=== PATIENT | female | born 1950 | race Caucasian/White ===

== ENCOUNTER 2018-03-07 08:00 | Inpatient (IN) | payer BC, MEDICARE ==
[2018-03-06 11:41] VITALS: BMI 22.5
[~2018-03-07] VITALS: Ht 160 cm; Wt 54.1 kg
[~2018-03-07 08:00] MED LIST: DULO60CA6 PO; FOLI-49 PO; HYDR200T5 PO; LEVO75TA5 PO; LOSA50TA14 PO; MONT10TA24 PO
[2018-04-02] VITALS (25 sets, daily range): BP systolic 84–158; BP diastolic 39–70; PULSE 70–78; RESP 10–26; Ht 160 cm; Wt 54.1 kg
[2018-04-02] MEDS ORDERED: SEVOFLURANE 15 MIN ONE (07:00)
[2018-04-02] MEDS ORDERED: OLME20TA20 PO (09:19)
[2018-04-02] MEDS ORDERED: HYDR200T5 PO (09:19)
[2018-04-02] MEDS ORDERED: LINA290C PO (09:20)
--- NOTE | 2018-04-02 09:50 | PREAC ---
Date/Time of Note Date/Time of Note DATE: 04/02/18 TIME: 09:46 Anesthesia Eval and Record Evaluation Time Pre-Procedure Interview DATE: 04/02/18 TIME: 09:46 Age 68 Sex female NPO: 8 hrs Preoperative diagnosis C3-6 degenerative disc disease Planned procedure C3-6 anterior cervical discectomy and instrumented fusion Past Medical History Past Medical History: Includes Cardio: HTN Endo: Hypothyroid Musculoskeletal: Osteoarthritis Renal: CKD Psych: Depression Infection(s): Hep C Surgery & Anesthesia Issues No known issue Meds Anticoagulation: No Beta Sydnie within 24 hr: No Reason Beta Sydnie not given: Pt. not on B-Sydnie Reported Medications Linaclotide (LINZESS) 290 Mcg Capsule, 290 MCG PO DAILY, #30 CAP 04/02/18 Olmesartan Medoxomil (Benicar) 20 Mg Tablet, 20 MG PO DAILY, #30 TAB 04/02/18 Hydroxychloroquine Sulfate* (Plaquenil*) 200 Mg Tab, 300 MG PO DAILY, TAB 04/02/18 Montelukast Sodium* (Montelukast Sodium*) 10 Mg Tablet, 10 MG PO QHS, #30 TAB 03/06/18 Folic Acid* (Folic Acid*) 1 Mg Tablet, 2 MG PO DAILY, TAB 03/06/18 Levothyroxine Sodium* (Levothyroxine Sodium*) 75 Mcg Tablet, 75 MCG PO BEFORE BREAKFAST, #30 TAB 03/06/18 Duloxetine Hcl* (Cymbalta*) 60 Mg Capsule.dr, 60 MG PO DAILY, CAP 03/06/18 Discontinued Reported Medications Hydroxychloroquine Sulfate* (Plaquenil*) 200 Mg Tab, 200 MG PO DAILY, TAB 03/06/18 Losartan Potassium* (Losartan Potassium*) 50 Mg Tablet, 75 MG PO DAILY, TAB 03/06/18 Meds reviewed: Yes Allergies Coded Allergies: Penicillins (Verified Adverse Reaction, Severe, weird feelings, psychological rxn, 04/02/18) Allergies Reviewed: Yes Labs/Studies Labs Reviewed: Reviewed by anesthesiologist test: N/A Pre-procedure Exam Last vitals Vital Signs Date Temp Pulse Resp B/P (MAP) Pulse Ox O2 O2 Flow FiO2 Time Delivery Rate 04/02/18 97.8 75 18 101/53 98 Room Air 09:00 (69) Airway: Adequate mouth opening Mallampati: Mallampati I Teeth: Normal Lung: Normal Heart: Normal ASA Physical Status ASA physical status: 2 Emergency: None Planned Anesthetic General/MAC: ETT Planned Pain Management Parenteral pain med Pre-operative Attestations Prior to commencing anesthesia and surgery, the patient was re-evaluated, there was verification of: *The patient's identity *The results of appropriate recent lab work and preoperative vital signs *The above evaluation not changing prior to induction *Anesthetic plan, risk benefits, alternative and complications discussed with patient/family; questions answered; patient/family understands, accepts and wishes to proceed. OVIDIO ALCANTARA MD Apr 02, 2018 09:50
[2018-04-02] MEDS ORDERED: VANCOMYCIN 1 GM (PMX) 250 ML IVPB ONE (10:00)
[2018-04-02] MEDS ORDERED: PROPOFOL 20 ML ONE (10:14)
[2018-04-02] MEDS ORDERED: GLYCOPYRROLATE 0.4 MG INJ ONE ×2 (10:14→11:06)
[2018-04-02] MEDS ORDERED: MEPERIDINE 100 MG INJ ONE (10:14)
[2018-04-02] MEDS ORDERED: LIDOCAINE 2% (SDV) 5 ML INJ ONE (10:14)
[2018-04-02] MEDS ORDERED: ROCURONIUM 50 MG INJ ONE (10:14)
[2018-04-02] MEDS ORDERED: SUCCINYLCHOLINE CHLORIDE 100 MG/5 ML SYG IV ONE (10:14)
[2018-04-02] MEDS ORDERED: BUPIVACAINE 0.25% (MPF) 30 ML INJ ONE (10:15)
[2018-04-02] MEDS ORDERED: GELATIN SIZE 100 SPONGE ONE (10:15)
[2018-04-02] MEDS ORDERED: BUPIVACAINE 0.5%/EPI (SDV) 30 ML INJ ONE (10:15)
[2018-04-02] MEDS ORDERED: THROMBIN 5000 UNIT VIAL ONE (10:15)
[2018-04-02] MEDS ORDERED: POLYMYXIN/BACITRACIN 1L IRRIG ONE (10:16)
[2018-04-02] MEDS ORDERED: HEPARIN 1000 UNITS/ML 10 ML INJ ONE (10:16)
[2018-04-02] MEDS ORDERED: CA CHLORIDE (GM) 10% 10 ML INJ ONE (10:16)
--- NOTE | 2018-04-02 10:25 | HPN ---
Date/Time of Note Date/Time of Note DATE: 04/02/18 TIME: 10:25 Interval H&P Admission Note Pt. seen H&P reviewed: No system changes DOROTHY MCGUIRE MD Apr 02, 2018 10:25
[2018-04-02] MEDS: DOCUSATE SODIUM 100 MG CAP PO SCH ×2 (10:30→20:44)
[2018-04-02] MEDS ORDERED: ACETAMINOPHEN 325 MG TAB PO PRN (10:30)
[2018-04-02] MEDS ORDERED: HYDROCODONE/APAP (5/325) TAB PO PRN (10:30)
[2018-04-02] MEDS ORDERED: DIPHENHYDRAMINE 50 MG INJ IV PRN ×2 (10:30→13:30)
[2018-04-02] MEDS ORDERED: ONDANSETRON 4 MG INJ IV PRN ×2 (10:30→13:30)
[2018-04-02] MEDS ORDERED: NALOXONE (0.4 MG/ML) INJ IV PRN (10:30)
[2018-04-02] MEDS ORDERED: HYDROmorphONE 0.5 MG/0.5 ML SYG IV PRN (10:30)
[2018-04-02] MEDS ORDERED: PROCHLORPERAZINE 10 MG TAB PO PRN (10:30)
[2018-04-02] MEDS ORDERED: DIPHENHYDRAMINE 25 MG CAP PO PRN (10:30)
[2018-04-02] MEDS ORDERED: CYCLOBENZAPRINE 10 MG TAB PO PRN (10:30)
[2018-04-02] MEDS ORDERED: EPHEDrine 25 MG/5 ML SYG ONE (11:06)
[2018-04-02] MEDS ORDERED: NEOSTIGMINE 10 MG INJ ONE (11:06)
--- NOTE | 2018-04-02 13:21 | SIPON ---
Date/Time of Note Date/Time of Note DATE: 04/02/18 TIME: 13:13 conf #[id number] Operative Report Preoperative Diagnosis C3-6 stenosis and DDD Postoperative Diagnosis same Operation/Procedure Performed C3-6 ACDF Surgeon see signature line curatorial assistant Chelsie Bowen NP Anesthesia: general Estimated blood loss: minimal Transfusion Required none Specimen Disc material Grafts/Implants Stalif C interbody cage and screws Complications none DOROTHY MCGUIRE MD Apr 02, 2018 13:21
[2018-04-02] MEDS ORDERED: HYDROmorphONE 1 MG/5 ML IV SYRINGE IV ONE (13:28)
[2018-04-02] MEDS ORDERED: OXYCODONE/ACETAMINOPHEN (5/325) TAB PO PRN ×2 (13:30)
[2018-04-02] MEDS ORDERED: METOCLOPRAMIDE 10 MG INJ IV PRN (13:30)
[2018-04-02] MEDS ORDERED: FENTAnyl 50 MCG/ML VIAL IV PRN ×3 (13:30)
[2018-04-02] MEDS ORDERED: HYDROmorphONE 1 MG/5 ML IV SYRINGE IV PRN ×3 (13:30)
[2018-04-02] MEDS ORDERED: MEPERIDINE 25 MG INJ IV PRN (13:30)
[2018-04-02] MEDS ORDERED: hydrALAzine 20 MG INJ IV PRN (13:30)
[2018-04-02] MEDS ORDERED: MIDAZOLAM 1 MG/ML 2 ML INJ IV PRN (13:30)
[2018-04-02] MEDS ORDERED: EPHEDrine SULFATE 50 MG/5 ML SYG IV PRN (13:30)
[2018-04-02] MEDS ORDERED: LABETALOL HCL 20MG INJ IV PRN (13:30)
[2018-04-02] MEDS ORDERED: LORAZEPAM 2 MG INJ ONE (13:50)
--- NOTE | 2018-04-02 13:58 | PAC ---
Date/Time of Note Date/Time of Note DATE: 04/02/18 TIME: 13:58 Post-Anesthesia Notes Post-Anesthesia Note Last documented vital signs Vital Signs Date Temp Pulse Resp B/P (MAP) Pulse Ox O2 O2 Flow FiO2 Time Delivery Rate 04/02/18 98.3 13:28 04/02/18 75 18 101/53 98 Room Air 09:00 (69) Activity: WNL Respiratory function: WNL Cardiovascular function: WNL Mental status: Baseline Pain reasonably controlled: Yes Hydration appropriate: Yes Nausea/Vomiting absent: Yes OVIDIO ALCANTARA MD Apr 02, 2018 13:58
[2018-04-02] MEDS ORDERED: LORAZEPAM 2 MG INJ IV ONE (14:00)
[2018-04-02] MEDS ORDERED: METOCLOPRAMIDE 10 MG INJ ONE (14:37)
[2018-04-02] MEDS ORDERED: ONDANSETRON 4 MG INJ ONE (14:37)
--- NOTE | 2018-04-02 16:55 | CONS ---
Assessment/Plan Assessment/Plan Hospital Course (Demo Recall) 68 yo F with PMH CKD stage 3, hypothyroidism, HTN, Raynaud's, osteoarthritis, depression, and chronic Hep C presented to [facility] for elective C3-C6 diskectomy, decompression and anterior fixation secondary to C3 through C6 cervical stenosis with cord compression, degenerative disk disease. Assessment/Plan (Daily) 1. C3- C6 cervical stenosis with cord compression s/p surgical intervention - management per Primary physician, Dr. Garcia - pain control 2. CKD stage 3 - avoid nephrotoxic agents - monitor Cr 3. Raynauds - continue home medications 4. Hypothyroidism - continue levothyroxine 5. Depression - Continue home medications Thank you for allowing me to participate in the care of this patient. Please call with any questions. Consultation Date/Type/Reason Admit Date/Time Apr 02, 2018 at 08:32 Type of Consult Internal Medicine Reason for Consultation medical management Date/Time of Note DATE: 04/02/18 TIME: 16:55 Hx of Present Illness 68 yo F with PMH CKD stage 3, hypothyroidism, HTN, Raynaud's, osteoarthritis, depression, and chronic Hep C presented to [facility] for elective C3-C6 diskectomy, decompression and anterior fixation secondary to C3 through C6 cervical stenosis with cord compression, degenerative disk disease. Medicine consultation was placed for medical management. Patient was evaluated in PACU following uneventful surgery. She was very restless given pain and was given Fentanyl and Dilaudid for relief. She was sedated and unable to obtain full history. Vitals appeared stable and patient was in no acute distress. C-collar in place. All 12 systems reviewed and pertinent positives as per HPI. All others negative. Unable to obtain full ROS given sedation. Constitutional: disoriented Past Medical History Medical History: hypertension, hypothyroid, renal disease, other (raynauds, depression, hep C) Home Meds Reported Medications Linaclotide (LINZESS) 290 Mcg Capsule, 290 MCG PO DAILY, #30 CAP 04/02/18 Olmesartan Medoxomil (Benicar) 20 Mg Tablet, 20 MG PO DAILY, #30 TAB 04/02/18 Hydroxychloroquine Sulfate* (Plaquenil*) 200 Mg Tab, 300 MG PO DAILY, TAB 04/02/18 Montelukast Sodium* (Montelukast Sodium*) 10 Mg Tablet, 10 MG PO QHS, #30 TAB 03/06/18 Folic Acid* (Folic Acid*) 1 Mg Tablet, 2 MG PO DAILY, TAB 03/06/18 Levothyroxine Sodium* (Levothyroxine Sodium*) 75 Mcg Tablet, 75 MCG PO BEFORE BREAKFAST, #30 TAB 03/06/18 Duloxetine Hcl* (Cymbalta*) 60 Mg Capsule.dr, 60 MG PO DAILY, CAP 03/06/18 Discontinued Reported Medications Hydroxychloroquine Sulfate* (Plaquenil*) 200 Mg Tab, 200 MG PO DAILY, TAB 03/06/18 Losartan Potassium* (Losartan Potassium*) 50 Mg Tablet, 75 MG PO DAILY, TAB 03/06/18 Medications Current Medications Acetaminophen/ Hydrocodone Bitart ([place] (5/325)) 1 tab Q4H PRN PO .PAIN 1-5; Start 04/02/18 at 10:30 Acetaminophen/ Hydrocodone Bitart ([place] (5/325)) 2 tab Q4H PRN PO .PAIN 6-10; Start 04/02/18 at 10:30 Hydromorphone HCl (Dilaudid) 0.2 mg Q1H PRN IV .BREAKTHROUGH PAIN; Start 04/02/18 at 10:30 Vancomycin HCl 250 ml @ 125 mls/hr Q12H IVPB ; Start 04/02/18 at 20:00; Stop 04/03/18 at 09:59 Ondansetron HCl (Zofran Inj) 4 mg Q6H PRN IV NAUSEA/VOMITING; Start 04/02/18 at 10:30 Prochlorperazine (Compazine) 10 mg Q6H PRN PO NAUSEA/VOMITING; Start 04/02/18 at 10:30 Docusate Sodium (Colace) 100 mg BID PO ; Start 04/02/18 at 10:30 Pantoprazole (Protonix Tab) 40 mg DAILY@06 PO ; Start 04/03/18 at 06:00 Acetaminophen (Tylenol Tab) 650 mg Q4H PRN PO CONNOR OR TEMP GREATER THAN 101.3F; Start 04/02/18 at 10:30 Cyclobenzaprine HCl (Flexeril) 5 mg TID PRN PO .MUSCLE SPASM; Start 04/02/18 at 10:30 Phenol (Cepastat Lozenge) 1 lozenge PRN PRN MT .SORE THROAT; Start 04/02/18 at 10:30 Diphenhydramine HCl (Benadryl) 25 mg Q6H PRN PO .ITCHING; Start 04/02/18 at 10:30 Diphenhydramine HCl (Benadryl) 25 mg Q6H PRN IV .ITCHING Last administered on 04/02/18at 14:15; Admin Dose 25 MG; Start 04/02/18 at 10:30 Naloxone HCl (Narcan) 0.2 mg Q2M PRN IV .RR 8 BREATHS/MIN OR LESS; Start 04/02/18 at 10:30 Allergies: Coded Allergies: Penicillins (Verified Adverse Reaction, Severe, weird feelings, psychological rxn, 04/02/18) Past Surgical History Past Surgical Hx: other (cervical disketomy C3-C6 with decompression and anterior fixation, tubal ligation, rectal prolaspe) Family History Significant Family History: no pertinent family hx Social History Alcohol Use: other Smoking Status: Current every day smoker Drug Use: other Exam/Review of Systems Exam Vitals Vital Signs Date Temp Pulse Resp B/P (MAP) Pulse Ox O2 O2 Flow FiO2 Time Delivery Rate 04/02/18 70 11 99/44 (62) 99 14:38 04/02/18 Nasal 3.0 14:33 Cannula 04/02/18 98.3 13:28 Exam General: Patient is a pleasant female, currently lying in bed, collar in place, lethargic HEENT: Atraumatic, normocephalic. The pupils are equal, round and reactive. Extraocular motor are intact Neck: Supple, Collar in place Chest: Nontender Lungs: Clear to auscultation bilaterally no crackles rales or wheezing Heart: Normal S1-S2, Regular rate and rhythm, no murmurs Abdomen: Soft , nontender, nondistended , bowel sounds are present. No guarding no rebound tenderness , No masses or organomegaly. No costovertebral temporal angle mass Extremities: Normal to inspection, no edema no cyanosis Imaging Imaging PROCEDURE: XR Chest CLINICAL INDICATION: pre op evaluation TECHNIQUE: Frontal view of the chest COMPARISON: None available FINDINGS: The cardiomediastinal silhouette is within normal limits. No focal pulmonary consolidations. There is no evidence of significant pleural effusion or pneumothorax. No suspicious osseous lesions. IMPRESSION: No radiographic evidence of acute cardiopulmonary disease. RPTAT: KK Physician Lissette Date Time Electronically viewed and signed by Physician Lissette on 04/02/2018 09:30 PROCEDURE: Intraoperative imaging of the cervical spine with fluoroscopy. CLINICAL INDICATION: Neck pain. Intraoperative. TECHNIQUE: 5 images of the cervical spine were obtained in the operating room with an image intensifier. No radiologist was in attendance. Fluoroscopy time is 18 seconds. COMPARISON: No prior study is available for comparison. FINDINGS: Surgical instruments are noted overlying the cervical spine. Images demonstrate anterior fusion with screws and intervertebral cages at C3, C4, C5, C6. IMPRESSION: 1. Intraoperative imaging of the cervical spine. RPTAT: QQ .Clifford Burk MD, MD Date Time Electronically viewed and signed by .Clifford Burk MD, MD on 04/02/2018 13:55 Medications Medication Current Medications Acetaminophen/ Hydrocodone Bitart ([place] (5/325)) 1 tab Q4H PRN PO .PAIN 1-5; Start 04/02/18 at 10:30 Acetaminophen/ Hydrocodone Bitart ([place] (5/325)) 2 tab Q4H PRN PO .PAIN 6-10; Start 04/02/18 at 10:30 Hydromorphone HCl (Dilaudid) 0.2 mg Q1H PRN IV .BREAKTHROUGH PAIN; Start 04/02/18 at 10:30 Vancomycin HCl 250 ml @ 125 mls/hr Q12H IVPB ; Start 04/02/18 at 20:00; Stop 04/03/18 at 09:59 Ondansetron HCl (Zofran Inj) 4 mg Q6H PRN IV NAUSEA/VOMITING; Start 04/02/18 at 10:30 Prochlorperazine (Compazine) 10 mg Q6H PRN PO NAUSEA/VOMITING; Start 04/02/18 at 10:30 Docusate Sodium (Colace) 100 mg BID PO ; Start 04/02/18 at 10:30 Pantoprazole (Protonix Tab) 40 mg DAILY@06 PO ; Start 04/03/18 at 06:00 Acetaminophen (Tylenol Tab) 650 mg Q4H PRN PO CONNOR OR TEMP GREATER THAN 101.3F; Start 04/02/18 at 10:30 Cyclobenzaprine HCl (Flexeril) 5 mg TID PRN PO .MUSCLE SPASM; Start 04/02/18 at 10:30 Phenol (Cepastat Lozenge) 1 lozenge PRN PRN MT .SORE THROAT; Start 04/02/18 at 10:30 Diphenhydramine HCl (Benadryl) 25 mg Q6H PRN PO .ITCHING; Start 04/02/18 at 10:30 Diphenhydramine HCl (Benadryl) 25 mg Q6H PRN IV .ITCHING Last administered on 04/02/18at 14:15; Admin Dose 25 MG; Start 04/02/18 at 10:30 Naloxone HCl (Narcan) 0.2 mg Q2M PRN IV .RR 8 BREATHS/MIN OR LESS; Start 04/02/18 at 10:30 EMIGDIO ALBERT MD Apr 02, 2018 16:55
--- NOTE | 2018-04-02 17:22 | OPR ---
DATE OF OPERATION: 04/02/2018 PREOPERATIVE DIAGNOSIS: C3 through C6 cervical stenosis with cord compression, degenerative disk dis ease. POSTOPERATIVE DIAGNOSIS: C3 through C6 cervical stenosis with cord compression, degenerative disk di sease. OPERATIONS PERFORMED: 1. Anterior cervical diskectomy at C3 to C4, C4 to C5 and C5 to C6. 2. Preparation of endplates at each level. 3. Decompression of central canal at each level. 4. Right decompression of bilateral foramens at each level. 5. Placement of interbody cage at each level with bone graft. 6. Anterior fixation at each level. 7. Use of intraoperative microscope for microdissection. 8. Use of intraoperative fluoroscopy for localization and placement of instrumentation. 9. Use of intraoperative neuromonitoring during entire surgical procedure for assessment and evaluat ion of spinal cord signal in bilateral upper and lower extremity monitoring. 10. Cosmetic wound closure 3 cm incision. SURGEON: Alf Garcia MD CONSULTING SALES MANAGER: Chelsie Bowen NP TYPE OF ANESTHESIA: General. ANESTHESIOLOGIST: Eliseo Hill MD ESTIMATED BLOOD LOSS: Minimal. TRANSFUSION: None. SPECIMENS: Disk material and grafts. IMPLANTS: STALIF C interbody cage and screws. COMPLICATIONS: None. BRIEF PREOPERATIVE HISTORY: The patient is a 68-year-old female with past medical history significan t for hypertension, osteoarthritis, chronic hepatitis C, major depressive disorder, kidney disease, c hronic stage III, who presented with significant neurologic symptoms secondary to the severe nerve ro ot compression and spinal cord compression of cervical spine secondary to degenerative changes as wel l as stenosis and degenerative disk disease. Operation was discussed with the patient with all risks , benefits and alternatives, the patient consented to surgery as stated above. OPERATION IN DETAIL: The patient was brought to the operating room, placed under anesthesia by Dr. Irving noriega and given 1 gram of vancomycin. The patient was then placed on operating room table in the supine fashion with a bump placed under the shoulder blades and bilateral arms tucked at side with a cervic al spine prepped and draped in the usual sterile fashion. An incision was made after 0.25% Marcaine with epinephrine was injected under the skin line and the left lateral transverse incision over the C 3 to C6 level was made. The plane between the sternocleidomastoid and the trachea was developed to t he anterior spine and a bent spinal needle was placed in the C3 to C4 level for lateral and AP locali zing film verifying proper position. At that time, we started with our procedure placing [place] pins in the mediolateral retractor and the longus colli and then removed all disk in this area within the C3 to C4 space and decompressed foramens and central canal. We sized our STALIF C interbody cage, p laced that into the space with bone graft and then secured it down with anterior fixation and screws. Then, we focused our direction and performed the same procedure at C4 to C5 and C5 to C6. Once concluded with placement of instrumentation, verified proper position on AP and lateral fluorosc opy, we started with our closing procedure. All hemostasis was achieved and copious irrigation befor e closure. During the procedure, we used intraoperative neuromonitoring for spinal cord monitoring as well as ne rve root signals as well as microscope was used for microdissection and fluoroscopy for localization and placement of instrumentation. During the procedure, no complications were met. At the conclusion, all instrument, sponge counts an d needles were correct. The patient will be admitted to the hospital for overnight observation and d ischarged home tomorrow. Dictated By: ALF ZUÑIGA/ROSELINE Conf#: [id number] DID#: [id number] CC: EMIGDIO ALBERT MD;*EndCC*
[2018-04-02] MEDS: VANCOMYCIN 1 GM (PMX) 250 ML IVPB SCH (20:40)
[2018-04-02] MEDS: MONTELUKAST 10 MG TAB PO SCH (20:44)
[2018-04-03] MEDS: HYDROCODONE/APAP (5/325) TAB PO PRN ×2 (02:00→10:52)
[2018-04-03 02:15] VITALS: BP 160/73; PULSE 74; RESP 20
[2018-04-03 03:54] VITALS: BP 145/70; RESP 18
[2018-04-03] MEDS: PANTOPRAZOLE (EC) 40 MG TAB PO SCH (05:32)
[2018-04-03] MEDS: CEPASTAT LOZENGE MT PRN ×2 (06:00→20:11)
[2018-04-03] MEDS: LEVOTHYROXINE 75 MCG TAB PO SCH (06:12)
--- NOTE | 2018-04-03 06:32 | DS ---
Date/Time of Note Date/Time of Note DATE: 04/03/18 TIME: 06:30 Discharge Summary Admission/Discharge Info Admit Date/Time Apr 02, 2018 at 08:32 Discharge Date/Time 11/01 Discharge Diagnosis s/p C3-6 fusion ACDF Patient Condition: Good Consults Hospitalist Procedures C3-6 ACDF Hx of Present Illness Hep C and Kidney failure Hospital Course Did well post op. Home Meds Reported Medications Linaclotide (LINZESS) 290 Mcg Capsule, 290 MCG PO DAILY, #30 CAP 04/02/18 Olmesartan Medoxomil (Benicar) 20 Mg Tablet, 20 MG PO DAILY, #30 TAB 04/02/18 Hydroxychloroquine Sulfate* (Plaquenil*) 200 Mg Tab, 300 MG PO DAILY, TAB 04/02/18 Montelukast Sodium* (Montelukast Sodium*) 10 Mg Tablet, 10 MG PO QHS, #30 TAB 03/06/18 Folic Acid* (Folic Acid*) 1 Mg Tablet, 2 MG PO DAILY, TAB 03/06/18 Levothyroxine Sodium* (Levothyroxine Sodium*) 75 Mcg Tablet, 75 MCG PO BEFORE BREAKFAST, #30 TAB 03/06/18 Duloxetine Hcl* (Cymbalta*) 60 Mg Capsule.dr, 60 MG PO DAILY, CAP 03/06/18 Discontinued Reported Medications Hydroxychloroquine Sulfate* (Plaquenil*) 200 Mg Tab, 200 MG PO DAILY, TAB 03/06/18 Losartan Potassium* (Losartan Potassium*) 50 Mg Tablet, 75 MG PO DAILY, TAB 03/06/18 Follow-up Plan office in 7-10 days Primary Care Provider Not On Staff Doctor Time spent on discharge: Pending Labs Laboratory Tests Test 04/03/18 04:21 White Blood Count 5.0 10^3/ul (4.8-10.8) Red Blood Count 3.28 10^6/ul (4.20-5.40) Hemoglobin 10.0 g/dl (12.0-16.0) Hematocrit 30.0 % (37.0-47.0) Mean Corpuscular Volume 91.5 fl (82.0-101.0) Mean Corpuscular Hemoglobin 30.5 pg (29.0-33.0) Mean Corpuscular Hemoglobin Concent 33.3 g/dl (32.0-37.0) Red Cell Distribution Width 12.1 % (11.5-14.5) Platelet Count 146 10^3/UL (140-415) Mean Platelet Volume 10.7 fl (7.4-10.4) Immature Granulocytes % 0.200 % (0.001-0.429) Neutrophils % 79.6 % (39.0-77.0) Lymphocytes % 11.4 % (15.0-51.0) Monocytes % 7.4 % (0.0-11.0) Eosinophils % 1.2 % (0.0-7.0) Basophils % 0.2 % (0.0-2.0) Nucleated Red Blood Cells % 0.0 /100WBC (0.0-0.0) Immature Granulocytes # 0.010 10^3/ul (0.0-0.031) Neutrophils # 4.0 10^3/ul (1.6-7.5) Lymphocytes # 0.6 10^3/ul (0.8-2.9) Monocytes # 0.4 10^3/ul (0.3-0.9) Eosinophils # 0.1 10^3/ul (0.0-0.5) Basophils # 0.0 10^3/ul (0.0-0.1) Nucleated Red Blood Cells # 0.0 10^3/ul (0.0-0.0) Sodium Level 141 mmol/L (135-144) Potassium Level 4.4 mmol/L (3.5-5.1) Chloride Level 107 mmol/L (97-110) Carbon Dioxide Level 25 mmol/L (21-31) Anion Gap 9 (5-13) Blood Urea Nitrogen 30 mg/dl (7-20) Creatinine 1.44 mg/dl (0.44-1.00) Glucose Level 89 mg/dl (70-220) Calcium Level 9.0 mg/dl (8.4-10.2) Phosphorus Level 4.1 mg/dl (2.5-4.9) Magnesium Level 1.8 mg/dl (1.7-2.5) Albumin 3.3 g/dl (3.3-4.9) DOROTHY MCGUIRE MD Apr 03, 2018 06:32
[2018-04-03 08:08] VITALS: BP 138/69; PULSE 70; RESP 18
[2018-04-03] MEDS: DOCUSATE SODIUM 100 MG CAP PO SCH ×2 (08:23→20:11)
[2018-04-03] MEDS: VANCOMYCIN 1 GM (PMX) 250 ML IVPB SCH (08:23)
[2018-04-03] MEDS ORDERED: DULOXETINE 30 MG CAP DR PO SCH (09:00)
[2018-04-03] MEDS ORDERED: LOSARTAN 50 MG TAB PO SCH (09:00)
[2018-04-03] MEDS ORDERED: HYDROXYCHLOROQUINE 200 MG TAB PO SCH (09:00)
[2018-04-03] MEDS ORDERED: FOLIC ACID 1 MG TAB PO SCH (09:00)
--- NOTE | 2018-04-03 09:09 | PDOCDIS ---
Discharge Instructions DIAGNOSIS Discharge Diagnosis s/p C3-6 fusion ACDF CONDITION [id number] Patient Condition: [id number] Good HOME CARE INSTRUCTIONS: [id number] Diet Instructions: [id number] FOLLOW UP/APPOINTMENTS Follow-up Plan office in 7-10 days pcp 1 week GILLIAN SÁNCHEZ MD Apr 03, 2018 09:09
--- NOTE | 2018-04-03 11:37 | CONS ---
Assessment/Plan Assessment/Plan Hospital Course (Demo Recall) 68 yo F with PMH CKD stage 3, hypothyroidism, HTN, Raynaud's, osteoarthritis, d epression, and chronic Hep C presented to [facility] for elective C3-C6 diskectomy, decompression and anterior fixation secondary to C3 through C6 cervical stenosis with cord compression, degenerative disk disease. Assessment/Plan (Daily) 1. C3- C6 cervical stenosis with cord compression s/p surgical intervention, POD #! - management per Primary physician, Dr. Garcia - after cleared for discharge by physical therapy, angi for d/c rudolph and discharge home - pain control 2. CKD stage 3 - stable - avoid nephrotoxic agents - monitor Cr 3. Raynauds - continue home medications 4. Hypothyroidism - continue levothyroxine 5. Depression - Continue home medications 6. Disposition - Cleared for discharge home from medical standpoint. Continue all home medi cations upon discharge Thank you for allowing me to participate in the care of this patient. Please call with any questions. Consultation Date/Type/Reason Admit Date/Time Apr 02, 2018 at 08:32 Initial Consult Date Type of Consult Internal Medicine Reason for Consultation Medical management Date/Time of Note DATE: 04/03/18 TIME: 11:27 24 HR Interval Summary Free Text/Dictation Patient is complaining of pain in left tonsillar area as well as site of surgical incision. No acute overnight events. Exam/Review of Systems Exam Vitals Vital Signs Date Temp Pulse Resp B/P (MAP) Pulse Ox O2 O2 Flow FiO2 Time Delivery Rate 04/03/18 98.0 70 18 138/69 98 Nasal 3.0 08:08 (92) Cannula Intake and Output 04/02/18 04/02/18 04/03/18 1515:00 23:00 07:00 IntakeIntake Total 1900 ml 610 ml OutputOutput Total 275 ml 250 ml 1100 ml BalanceBalance 1625 ml -250 ml -490 ml Exam General: Patient is a pleasant female, currently lying in bed, no acute distress unless moves head HEENT: Atraumatic, normocephalic. The pupils are equal, round and reactive. Extraocular motor are intact Neck: Supple, anterior dressing clean and dry Chest: Nontender Lungs: Clear to auscultation bilaterally no crackles rales or wheezing Heart: Normal S1-S2, Regular rate and rhythm, no murmurs Abdomen: Soft , nontender, nondistended , bowel sounds are present. No guarding no rebound tenderness Extremities: Normal to inspection, no edema no cyanosis Results Result Diagram: 04/03/1842004/03/18 042 Results 24hrs Laboratory Tests Test 04/03/18 04:21 04/03/18 07:52 White Blood Count 5.0 Red Blood Count 3.28 L Hemoglobin 10.0 L Hematocrit 30.0 L Mean Corpuscular Volume 91.5 Mean Corpuscular Hemoglobin 30.5 Mean Corpuscular Hemoglobin Concent 33.3 Red Cell Distribution Width 12.1 Platelet Count 146 Mean Platelet Volume 10.7 H Immature Granulocytes % 0.200 Neutrophils % 79.6 H Lymphocytes % 11.4 L Monocytes % 7.4 Eosinophils % 1.2 Basophils % 0.2 Nucleated Red Blood Cells % 0.0 Immature Granulocytes # 0.010 Neutrophils # 4.0 Lymphocytes # 0.6 L Monocytes # 0.4 Eosinophils # 0.1 Basophils # 0.0 Nucleated Red Blood Cells # 0.0 Sodium Level 141 Potassium Level 4.4 Chloride Level 107 Carbon Dioxide Level 25 Anion Gap 9 Blood Urea Nitrogen 30 H Creatinine 1.44 H Glucose Level 89 Calcium Level 9.0 Phosphorus Level 4.1 Magnesium Level 1.8 Albumin 3.3 Lab Scanned Report REFERENCE LAB Medications Medication Current Medications Acetaminophen/ Hydrocodone Bitart ([place] (5/325)) 1 tab Q4H PRN PO .PAIN 1-5; Start 04/02/18 at 10:30 Acetaminophen/ Hydrocodone Bitart ([place] (5/325)) 2 tab Q4H PRN PO .PAIN 6-10 Last administered on 04/03/18at 10:52; Admin Dose 2 TAB; Start 04/02/18 at 10:30 Hydromorphone HCl (Dilaudid) 0.2 mg Q1H PRN IV .BREAKTHROUGH PAIN; Start 04/02/18 at 10:30 Ondansetron HCl (Zofran Inj) 4 mg Q6H PRN IV NAUSEA/VOMITING; Start 04/02/18 at 10:30 Prochlorperazine (Compazine) 10 mg Q6H PRN PO NAUSEA/VOMITING; Start 04/02/18 at 10:30 Docusate Sodium (Colace) 100 mg BID PO Last administered on 04/03/18at 08:23; Admin Dose 100 MG; Start 04/02/18 at 10:30 Pantoprazole (Protonix Tab) 40 mg DAILY@06 PO Last administered on 04/03/18at 05:32; Admin Dose 40 MG; Start 04/03/18 at 06:00 Acetaminophen (Tylenol Tab) 650 mg Q4H PRN PO CONNOR OR TEMP GREATER THAN 101.3F; Start 04/02/18 at 10:30 Cyclobenzaprine HCl (Flexeril) 5 mg TID PRN PO .MUSCLE SPASM; Start 04/02/18 at 10:30 Phenol (Cepastat Lozenge) 1 lozenge PRN PRN MT .SORE THROAT Last administered on 04/03/18 06:00; Admin Dose 1 LOZENGE; Start 04/02/18 at 10:30 Diphenhydramine HCl (Benadryl) 25 mg Q6H PRN PO .ITCHING; Start 04/02/18 at 10:30 Diphenhydramine HCl (Benadryl) 25 mg Q6H PRN IV .ITCHING Last administered on 04/02/18at 14:15; Admin Dose 25 MG; Start 04/02/18 at 10:30 Naloxone HCl (Narcan) 0.2 mg Q2M PRN IV .RR 8 BREATHS/MIN OR LESS; Start 04/02/18 at 10:30 Duloxetine HCl (Cymbalta) 60 mg DAILY PO Last administered on 04/03/18 08:23; Admin Dose 60 MG; Start 04/03/18 at 09:00 Folic Acid (Folic Acid) 2 mg DAILY PO Last administered on 04/03/18 08:23; Admin Dose 2 MG; Start 04/03/18 at 09:00 Hydroxychloroquine Sulfate (Plaquenil) 300 mg DAILY PO Last administered on 04/03/18 08:24; Admin Dose 300 MG; Start 04/03/18 at 09:00 Levothyroxine Sodium (Synthroid) 75 mcg BEFORE BREAKFAST PO Last administered on 04/03/18 06:12; Admin Dose 75 MCG; Start 04/03/18 at 07:00 Montelukast Sodium (Singulair) 10 mg QHS PO Last administered on 04/02/18at 20:44; Admin Dose 10 MG; Start 2/20/19 at 21:00 Losartan Potassium (Cozaar) 50 mg DAILY PO Last administered on 04/03/18at 08:23; Admin Dose 50 MG; Start 04/03/18 at 09:00 EMIGDIO ALBERT MD Apr 03, 2018 11:37
[2018-04-03 15:22] VITALS: BP 128/59; PULSE 81; RESP 18
[2018-04-03 19:15] VITALS: BP 131/61; PULSE 87; RESP 20
[2018-04-03] MEDS: MONTELUKAST 10 MG TAB PO SCH (20:11)
[2018-04-04] MEDS: HYDROCODONE/APAP (5/325) TAB PO PRN (02:09)
[2018-04-04 02:25] VITALS: BP 153/68; PULSE 71; RESP 20
[2018-04-04] MEDS: PANTOPRAZOLE (EC) 40 MG TAB PO SCH (05:20)
[2018-04-04] MEDS: LEVOTHYROXINE 75 MCG TAB PO SCH (05:20)
== END 2018-04-04 07:20 | disposition home or self-care (01) | DRG 472 ==
LOC: REC 04-02 08:32 → MS1 04-02 15:17
PROVIDERS: ADMIT Orthopaedic Surgery Orthopaedic Surgery of the Spine; ATTEND Orthopaedic Surgery Orthopaedic Surgery of the Spine
PROC: 0RT30ZZ Resection of Cervical Vertebral Disc, Open Approach (ICD-10-PCS; 2018-04-02)
PROC: 4A11X4G Monitoring of Peripheral Nervous Electrical Activity, Intraoperative, External Approach (ICD-10-PCS; 2018-04-02)
PROC: 0RG20A0 Fusion of 2 or more Cervical Vertebral Joints with Interbody Fusion Device, Anterior Approach, Anterior Column, Open Approach (ICD-10-PCS; principal; 2018-04-02 12:00)
DX: M50.01 Cervical disc disorder with myelopathy, high cervical region (principal); M47.12 Other spondylosis with myelopathy, cervical region; M48.02 Spinal stenosis, cervical region; I12.9 Hypertensive chronic kidney disease with stage 1 through stage 4 chronic kidney disease, or unspecified chronic kidney disease; N18.3 Chronic kidney disease, stage 3 (moderate); B18.2 Chronic viral hepatitis C; F32.9 Major depressive disorder, single episode, unspecified; E03.9 Hypothyroidism, unspecified; I73.00 Raynaud's syndrome without gangrene
CPT/HCPCS: 71045; 72040; 80069; 83735; 85025; 86850; 86900; 86901; 86999; 87086; 88304; 90686; 97116; 97161; 97167; J1170; J1200; J1644; J2060; J2175; J2250; J2405; J2710; J2765; J3010; J3370